=== PATIENT | female | born 1995 | race Caucasian/White ===

== ENCOUNTER 2022-09-19 14:57 | Emergency (ER) | payer MEDICAID ==
[~2022-09-19] VITALS: Ht 157.5 cm; Wt 79.1 kg
[2022-09-19 15:19] VITALS: BP 126/81; PULSE 100; RESP 20; TEMP 98.8; O2SAT 99
[2022-09-19] MEDS ORDERED: OLOP2.5D7 OP (16:03)
[2022-09-19] MEDS ORDERED: DOXY-690 PO (16:03)
[2022-09-19] MEDS ORDERED: SUD30 PO (16:03)
--- NOTE | 2022-09-19 16:57 | NUR ---
Patient discharged with v/s stable. Written and verbal after care instructions given and explained. Patient alert, oriented and verbalized understanding of instructions. Ambulatory with to home. All questions addressed prior to discharge. ID band removed. Patient advised to follow up with PMD. Rx of VIBRAMYCIN,SUDAFED given. Patient educated on indication of medication including possible reaction and side effects. Opportunity to ask questions provided and answered.
== END 2022-09-19 16:56 | disposition home or self-care (01) ==
LOC: MED 14:57
DX: J32.8 Other chronic sinusitis (principal); Z20.822 Contact with and (suspected) exposure to COVID-19; H10.13 Acute atopic conjunctivitis, bilateral; B96.89 Other specified bacterial agents as the cause of diseases classified elsewhere; Z79.899 Other long term (current) drug therapy
CPT/HCPCS: 71045; 99284

== ENCOUNTER 2023-04-16 18:11 | Emergency (ER) | payer MEDICAID ==
[~2023-04-16] VITALS: Ht 154.9 cm; Wt 79.8 kg
[~2023-04-16 18:11] MED LIST: DOXY-690 PO; OLOP2.5D7 OP; SUD30 PO
[2023-04-16 18:14] VITALS: BP 115/60; PULSE 99; RESP 17; TEMP 97.8; O2SAT 100
[2023-04-16 18:31] VITALS: TEMP 97.8
[2023-04-16] MEDS ORDERED: fentaNYL citrate 0.05 MG/ML VIAL IVP ONE (18:35)
[2023-04-16 18:49] VITALS: O2SAT 100
[2023-04-16] MEDS ORDERED: ONDANSETRON 4 MG/2 ML VIAL IVP ONE (20:15)
[2023-04-16] MEDS ORDERED: MORPHINE SULFATE 4 MG/ML SYR IVP ONE (20:15)
[2023-04-16] MEDS ORDERED: IBUP-2218 PO (20:54)
[2023-04-16] MEDS ORDERED: HYDR-5191 PO (20:54)
[2023-04-16 21:35] VITALS: BP 101/57; PULSE 82; RESP 23; O2SAT 100
== END 2023-04-16 21:35 | disposition home or self-care (01) ==
LOC: MED 18:11
DX: S82.51XA Displaced fracture of medial malleolus of right tibia, initial encounter for closed fracture (principal); Z88.0 Allergy status to penicillin; Z79.899 Other long term (current) drug therapy; W52.XXXA Crushed, pushed or stepped on by crowd or human stampede, initial encounter; Y93.89 Activity, other specified; Y92.89 Other specified places as the place of occurrence of the external cause; Y99.8 Other external cause status
CPT/HCPCS: 29515; 73610; 96374; 96375; 99284; J2270; J2405; J3010; Q0092

== ENCOUNTER 2023-04-23 11:58 | Emergency (ER) | payer MEDICAID ==
[~2023-04-23] VITALS: Ht 154.9 cm; Wt 79.8 kg
[~2023-04-23 11:58] MED LIST changes: +HYDR-5191 PO; +IBUP-2218 PO
[2023-04-23 12:03] VITALS: BP 100/63; PULSE 81; RESP 16; TEMP 98; O2SAT 99
== END 2023-04-23 13:02 | disposition home or self-care (01) ==
LOC: MED 11:58
DX: S82.51XA Displaced fracture of medial malleolus of right tibia, initial encounter for closed fracture (principal); Z79.899 Other long term (current) drug therapy; W18.30XA Fall on same level, unspecified, initial encounter; Y93.89 Activity, other specified; Y92.89 Other specified places as the place of occurrence of the external cause; Y99.8 Other external cause status
CPT/HCPCS: 29515; 99283